=== PATIENT | male | born 1935 | race Caucasian/White ===

== ENCOUNTER 2017-02-01 13:40 | Day surgery (SDC) | payer OTHER ==
[2017-02-01 14:03] VITALS: BP 120/69; PULSE 54; RESP 20; TEMP 98.1; O2SAT 100
[2017-02-01] MEDS ORDERED: TAMS0.4C4 PO (14:08)
[2017-02-01] MEDS ORDERED: BUPIVACAINE HCL PF 0.75% 30 ML VIAL ONE (14:27)
[2017-02-01] MEDS ORDERED: TRIAMCINOLONE ACETONIDE 40 MG/ML VIAL ONE (14:27)
[2017-02-01 14:55] VITALS: BP 119/71; PULSE 46; RESP 18; TEMP 97.6; O2SAT 98
--- NOTE | 2017-02-01 14:55 | PD.RAD ---
Post Procedure Progress Note Pre Procedure Diagnosis: (1) Hip pain Post Procedure Diagnosis: (1) Hip pain Procedure Date: Feb 01, 2017 Supervising Radiologist: Esteban Barton Proceduralist/Assist: Susan Fernandez RT(R)(CV), RT Black(R)() Anesthesia: Local Plan of Activity Patient to Unit: ROPU Patient Condition: Good See PACS Report for procedural detail/treatment Esteban Barton MD Feb 01, 2017 14:55
[2017-02-01] MEDS ORDERED: IOHEXOL 300 MG/ML 50 ML BTL (for RAD DIAG) ONE (15:03)
--- NOTE | 2017-02-01 15:57 | RADRPT ---
EXAM DATE/TIME: 02/01/2017 14:51 [facility] COMPARISON: No previous studies available for comparison. INDICATIONS : Patient with left hip pain in need of steroid injection MEDICAL HISTORY : 1.Osteoarthritis 2.Left hip pain SURGICAL HISTORY : 1.Appendectomy 2.Hernia repair ENCOUNTER: Initial ACUITY: >1 year PAIN SCORE: 6/10 LOCATION: Left Hip FLUORO TIME: 0.65 IMAGE SERIES: 0 CONTRAST: 1cc Omnipaque (iohexol) 300 DEVICE: 22 gauge needle was placed into the left hip joint MEDICATIONS: 1.) 3 cc bupivicaine (Marcaine) IA 2.) 3 cc Lidocaine IA 3.) 80 mg triamcinolone (Kenalog) IA RESPONSE: Pre procedure pain level was 6/10. Post procedure pain level was 1/10. PROCEDURE : The risks, benefits and alternatives to the procedure were explained and verbal and written consent w as obtained. The site was prepped in sterile fashion. Full sterile technique was used, including ca p, mask, sterile gloves and gown and a large sterile sheet. Hand hygiene and 2% chlorhexidine and/or betadine/alcohol prep was utilized per protocol for cutaneous antisepsis. The skin and subcutaneous tissues were infiltrated with local anesthetic solution. Under sterile conditions and using aseptic technique with fluoroscopic guidance the joint was punctur ed and positive contrast was injected to confirm intra-articular position. Following this, the presc ribed mixture of Kenalog and local anesthetics was injected. The patient tolerated the procedure wel l and there were no complications. CONCLUSION: Uncomplicated therapeutic injection performed under fluoroscopic guidance. Esteban Barton MD on February 01, 2017 at 15:55 Board Certified Radiologist. This report was verified electronically.
== END 2017-02-01 15:30 | disposition home or self-care (01) ==
LOC: HROP 13:40 → HRIP 13:42 → HROP 15:30
PROVIDERS: ATTEND Physician Assistant
DX: M16.12 Unilateral primary osteoarthritis, left hip (principal)
CPT/HCPCS: 20610; J3301; Q9967; 77002

== ENCOUNTER → 2017-07-16 | Outpatient (CLI) | payer OTHER ==
[~2017-07-16] MED LIST: ASCO1CAP PO; CALCTAB19 PO; CODOIL2 PO; HYDR-3583 PO; LUTE20CA PO; MULT1TAB46 PO; SELE200T17 PO; TAMS0.4C4 PO; VITA100T65 PO; WALKER WHEELS/F1 MIS; XARE10TA PO
== END ==
LOC: CPRE 11:39
PROVIDERS: ATTEND Orthopaedic Surgery Orthopaedic Trauma
DX: Z01.810 Encounter for preprocedural cardiovascular examination (principal); Z01.811 Encounter for preprocedural respiratory examination; Z01.812 Encounter for preprocedural laboratory examination; Z01.818 Encounter for other preprocedural examination; Z96.60 Presence of unspecified orthopedic joint implant; Z79.01 Long term (current) use of anticoagulants; Z13.9 Encounter for screening, unspecified; M79.609 Pain in unspecified limb

== ENCOUNTER 2017-07-24 09:39 | Inpatient (IN) | payer OTHER ==
[~2017-07-24] VITALS: Ht 177.8 cm; Wt 83.8 kg
[2017-07-24 04:30] VITALS: BP 88/49; PULSE 56; RESP 18; TEMP 96.9; O2SAT 97
[~2017-07-24 09:39] MED LIST changes: -ASCO1CAP PO; -CALCTAB19 PO; -CODOIL2 PO; -HYDR-3583 PO; -LUTE20CA PO; -MULT1TAB46 PO; -SELE200T17 PO; -VITA100T65 PO; -WALKER WHEELS/F1 MIS; -XARE10TA PO
[2017-07-24] MEDS ORDERED: SELE200T17 PO (10:27)
[2017-07-24] MEDS ORDERED: LUTE20CA PO (10:27)
[2017-07-24] MEDS ORDERED: VITA100T65 PO (10:27)
[2017-07-24] MEDS ORDERED: MULT1TAB46 PO (10:27)
[2017-07-24] MEDS ORDERED: CODOIL2 PO (10:27)
[2017-07-24] MEDS ORDERED: ASCO1CAP PO (10:27)
[2017-07-24] MEDS ORDERED: VANCOMYCIN 1000 MG/NS 250 ML (for <70 kg) IV SCH ×2 (10:45)
[2017-07-24] MEDS ORDERED: CHLORHEXIDINE GLUCONATE 4% SOLN 120 ML BTL TOPICAL SCH (10:45)
[2017-07-24] MEDS ORDERED: ceFAZolin 2 GM PREMIX 50 ML IV SCH (10:45)
[2017-07-24] MEDS ORDERED: EXPAREL PERI-ARTICULAR INJECTION (TOTAL VOL. 60 ML) P-ARTICULR SCH ×2 (10:45)
[2017-07-24] MEDS ORDERED: INSULIN HUMAN REGULAR 1,000 UNITS/10 ML VIAL SQ PRN (11:00)
[2017-07-24] MEDS ORDERED: METOPROLOL TARTRATE 25 MG TAB PO PRN (11:00)
[2017-07-24] MEDS ORDERED: CHLORHEXIDINE GLUCONATE 2 % 1 PACK (2 CLOTHS) TOPICAL PRN (11:00)
[2017-07-24] MEDS ORDERED: LACTATED RINGER'S 1000 ML IV PRN (11:00)
[2017-07-24] MEDS ORDERED: POVIDONE IODINE 5% (ANTISEPSIS KIT) 4 APPLICATIONS EACH NARE PRN (11:00)
[2017-07-24] MEDS ORDERED: SODIUM CHLORID 0.9% 500 ML IV PRN (11:00)
[2017-07-24] MEDS ORDERED: GENTAMICIN SULFATE 80 MG/2 ML VIAL ONE (12:23)
[2017-07-24] MEDS ORDERED: EPINEPHrine HCL PF/SF (1:1000) 1 MG/ML AMP I-OCULAR ONE ×2 (12:54→12:55)
[2017-07-24] MEDS ORDERED: ACETAMINOPHEN 1000 MG/100 ML 100 ML IV ONE (12:54)
[2017-07-24] MEDS ORDERED: TETRACAINE PF 1% INJ 2 ML AMP ONE (12:57)
[2017-07-24] MEDS ORDERED: PROPOFOL 500 MG/50 ML INJ 50 ML ONE (13:07)
[2017-07-24] MEDS ORDERED: NALOXONE HCL 0.4 MG/ML AMP IV PUSH PRN (13:45)
[2017-07-24] MEDS ORDERED: MORPHINE SULFATE 4 MG/ML INJ IV PUSH PRN (13:45)
[2017-07-24] MEDS ORDERED: ONDANSETRON HCL 4 MG/2 ML VIAL IVP PRN (13:45)
[2017-07-24] MEDS ORDERED: SODIUM CHLORIDE 0.9% FLUSH 5 ML FLUSH IVF PRN (13:45)
[2017-07-24] MEDS ORDERED: Post-op Orders (for Pharmacy) MISC XX ONE (13:45)
[2017-07-24] MEDS ORDERED: TRANEXAMIC ACID IV SCH ×2 (14:00)
[2017-07-24] MEDS ORDERED: ASCORBIC ACID 1000 MG PO SCH (14:00)
[2017-07-24] MEDS ORDERED: SODIUM CHLORIDE 0.9% IV SCH ×2 (14:00)
--- NOTE | 2017-07-24 15:55 | PD.OP ---
cc: Larry Bhatt MD Operative Report Date of Surgery: Jul 24, 2017 Preoperative Diagnosis: Severe left hip osteoarthritis Postoperative Diagnosis: Procedure: Left total hip arthroplasty by anterior approach Surgeon: Larry Bhatt Scientist(s): EMELYN Méndez PA-C The surgical procedure was assisted by my physician medical research assistant. My P.A. presence was necessary throughout this case for the manipulation and positioning of the surgical extremity. My P.A. was assisting me throughout the duration of this procedure. The skill set of a physician medical research assistant was medically necessary to complete this procedure. During the surgical case the surgical technician was working at the back table and the physician medical research assistant was directly assisting me. Operation and Findings: PLAN OF ACTIVITY Weight bear as tolerated. DRAINS: 7-mm BAYLEE drain. IMPLANTS USED DePuy Corail size [12] collared stem with a size [54] [place] Gription cup, [54 /36] Altrx poly liner, and a +5 metal head. DETAILS OF PROCEDURE: This patient has a long history of hip pain. Patient was found to have severe osteoarthritis. The patient had radiographic evidence of joint space narrowing with [id number] arthritis and osteophytes around the acetabulum as well as the femoral head. There was also some cystic changes. The patient failed conservative treatment with pain medications, anti-inflammatories, physical therapy, assistive devices including a cane, as well as therapeutic injection of the hip. Patient's hip arthritis was limiting his ability to ambulate and perform activities of daily living. The patient wished to proceed with surgery and informed consent was obtained. Operative site was marked. I discussed both posterior approach and anterior approach with the patient and decision was made for anterior approach. Patient was brought to OR and placed on OR table. IV sedation and general anesthesia was administered by anesthesiologist. Patient positioned on a Krys table and was given IV antibiotics. Time-out procedure was performed. The hip and thigh were prepped with alcohol followed by Hibiclens. The thigh was draped in the usual sterile fashion. Clean Air Suite was used for this procedure. The procedure began with a 5-inch incision over the anterolateral thigh. Subcutaneous tissue was dissected with Bovie. The fascia over the tensa fasciae latae was incised. Care was taken to avoid injury to the lateral femoral cutaneous nerve. The tensor muscle was retracted laterally. Sartorius was retracted medially. Retractors were now placed. The reflected head of the rectus is now elevated. A capsulotomy was performed over the anterior head capsule. Sutures were placed to help retract the capsule. At this point the femoral head and neck were identified. With soft tissue protected, oscillating saw was used to make a cut through the femoral neck, the femoral head was now removed. At this point attention was turned to preparation of the acetabulum. The labrum was excised. The acetabulum was sequentially reamed up to size [54]. A [place] cup was now placed. Fluoroscopy was used to aid in identification of appropriate version. Cup was fully impacted and found to have excellent fit. Hole eliminator was now placed. The liner was now impacted into the cup. At this point the hip was externally rotated. A hook was placed around the proximal femur. The capsule was released off the lateral and medial femur. The hip was now extended and adducted. Retractors were placed around the proximal femur to allow for exposure. A box osteotome was used to remove the lateral cortex of the femoral neck. A broach was used to help lateralize the prosthesis. Canal finder was used to create a path down the canal. Next, the canal was sequentially broached up to size [12]. This was found to be an excellent fit. Calcar planer was placed. A standard head was placed, and the hip was reduced. The hip was found to have excellent stability with good range of motion. The leg lengths were measured under fluoroscopy and found to be equal compared to preoperatively. Trial broach was removed. The Corail stem was opened. Stem was fully impacted into the proximal femur in appropriate version. The femoral head was placed. The hip was again reduced. Fluoroscopy confirmed excellent alignment of prosthesis. The wound was thoroughly irrigated and capsule was closed with #1 Vicryl. The fascia over the tensor fasciae muscle was closed with #1 Vicryl, subcutaneous tissue was closed with 3-0 Vicryl and the skin was closed with annie and Dermabond skin closure. The capsule layers, muscle, and subcutaneous tissue were injected with a mixture of saline and bupivicaine. Dressings were applied. The patient was transferred to Recovery Room in stable condition. Larry Bhatt MD Jul 24, 2017 15:55
[2017-07-24] MEDS ORDERED: DO NOT ADM ANY ANTICOAGULANT DRUGS PRN (16:27)
[2017-07-24] MEDS ORDERED: WALKER WHEELS/F1 MIS (16:29)
[2017-07-24] MEDS ORDERED: XARE10TA PO (16:29)
[2017-07-24] MEDS ORDERED: HYDR-3583 PO (16:29)
[2017-07-24] MEDS ORDERED: CALCTAB19 PO (16:29)
--- NOTE | 2017-07-24 16:32 | HHI.FF ---
Face to Face Verification Diagnosis: (1) Status post left hip replacement Physical Therapy Gait training, Safety evaluation Hip: Total hip, Protocol: Left, Posterior hip precautions Left LE Weight Bearing: WB as tolerated Nursing Dressing Changes: Do not change dressing Additional Instructions dry dressings unless dirty, then replace. xeroform over drain site only I have seen patient Chandler Mercedes on 07/24/17. My clinical findings support the need for the requested home health care services because: Limited ability to care for self I certify that my clinical findings support that this patient is homebound because: Post-op weakness Brijesh Messer Jr. Jul 24, 2017 16:32
[2017-07-24] MEDS: LACTATED RINGER'S 1000 ML INJ 1,000 ML IV SCH (16:33)
--- NOTE | 2017-07-24 16:38 | RADRPT ---
EXAM DATE/TIME: 07/24/2017 15:25 [facility] COMPARISON: FLUOROSCOPY PORTABLE UP TO 1HR, July 24, 2017, 0:00. INDICATIONS : Left anterior hip replacement. MEDICAL HISTORY : None. SURGICAL HISTORY : None. ENCOUNTER: Initial ACUITY: 1 day PAIN SCORE: 0/10 LOCATION: Left hip FINDINGS: The patient is post left hip arthroplasty. Orthopedic hardware is in excellent position. The alignmen t is good. CONCLUSION: 1. Uncomplicated left hip arthroplasty. Livan Carter MD on July 24, 2017 at 16:35 Board Certified Radiologist. This report was verified electronically.
--- NOTE | 2017-07-24 17:15 | RADRPT ---
EXAM DATE/TIME: 07/24/2017 16:29 [facility] COMPARISON: No previous studies available for comparison. INDICATIONS : Post op left anterior hip. MEDICAL HISTORY : None. SURGICAL HISTORY : None. ENCOUNTER: Subsequent ACUITY: 1 day PAIN SCORE: 6/10 LOCATION: Left pelvis FINDINGS: Left total hip arthroplasty is present. The hardware appears intact. Alignment is anatomic. The adjac ent pelvis is unremarkable. A surgical drain is present. There is severe degenerative arthritic hale e of the contralateral right hip. CONCLUSION: Satisfactory appearance post left ANNIE Desean Leyva MD on July 24, 2017 at 17:13 Board Certified Radiologist. This report was verified electronically.
[2017-07-24 18:00] VITALS: BP 102/59; PULSE 49; RESP 18; TEMP 96.3; O2SAT 100
[2017-07-24] MEDS ORDERED: TRANEXAMIC ACID INJ 1,000 MG in SODIUM CHLORIDE 0.9% INJ 100 ML IV ONE (18:00)
[2017-07-24 19:52] VITALS: BP 113/68; PULSE 84; RESP 18; TEMP 96.8; O2SAT 97
[2017-07-24] MEDS: SODIUM CHLORIDE 0.9% FLUSH 5 ML FLUSH IVF SCH (21:00)
[2017-07-24] MEDS: ceFAZolin 2 GM PREMIX 50 ML IV SCH (21:35)
[2017-07-24] MEDS: KETOROLAC TROMETHAMINE 30 MG/ML (IVP) VIAL IV PUSH SCH (21:35)
[2017-07-24] MEDS: TAMSULOSIN HCL 0.4 MG CAP PO SCH (21:36)
[2017-07-24] MEDS: ACETAMINOPHEN/HYDROcodone 325 MG/7.5 MG TAB PO PRN (21:45)
[2017-07-24 23:52] VITALS: BP 93/50; PULSE 69; RESP 18; TEMP 97.5; O2SAT 96
[2017-07-25] MEDS: LACTATED RINGER'S 1000 ML INJ 1,000 ML IV SCH ×2 (02:34→15:00)
[2017-07-25] MEDS: VANCOMYCIN INJ 1,000 MG in SODIUM CHLOR 0.9% 250 ML INJ 250 ML IV SCH ×2 (02:34→14:22)
[2017-07-25] MEDS: ceFAZolin 2 GM PREMIX 50 ML IV SCH ×2 (03:40→08:50)
[2017-07-25 05:28] VITALS: BP 102/57; PULSE 56
[2017-07-25] MEDS: KETOROLAC TROMETHAMINE 30 MG/ML (IVP) VIAL IV PUSH SCH ×2 (06:05→18:30)
--- NOTE | 2017-07-25 06:23 | PD.ORT.PN ---
Subjective Subjective Remarks POD 1 s/p left anterior ANNIE doing well. pain controlled. has not been out of bed yet. states has had urinary retention for which was straight cath'd last night. nurse reports she drained 1300cc Objective Vitals Vital Signs Date Time Temp Pulse Resp B/P (MAP) Pulse Ox O2 Delivery O2 Flow Rate FiO2 07/25/17 05:28 56 102/57 (72) 07/24/17 23:52 97.5 69 18 93/50 (64) 96 07/24/17 23:50 Room Air 07/24/17 21:20 Nasal Cannula 2.00 07/24/17 19:52 96.8 84 18 113/68 (83) 97 07/24/17 18:00 96.3 49 18 102/59 (73) 100 07/24/17 17:30 96.1 51 16 106/57 (73) 100 Room Air 07/24/17 17:15 52 19 112/57 (75) 100 Room Air 07/24/17 17:00 54 22 91/56 (68) 100 Nasal Cannula 2 07/24/17 16:45 58 14 101/61 (74) 100 Nasal Cannula 2 07/24/17 16:30 59 20 102/64 (77) 99 Nasal Cannula 2 07/24/17 16:26 46 15 88/50 (63) 99 07/24/17 16:24 97.4 47 20 83/47 (59) 98 Nasal Cannula 2 07/24/17 10:29 98.0 50 18 112/69 (83) 98 I/O 07/24/17 07/24/17 07/24/17 07/25/17 07/25/17 07/25/17 07:00 15:00 23:00 07:00 15:00 23:00 Intake Total 2378 ml 758 ml Output Total 1760 ml 110 ml Balance 618 ml 648 ml Intake Oral 490 ml 360 ml IV Total 188 ml 398 ml Other 1700 ml Output Urine Total 1300 ml Drainage Total 260 ml 110 ml Estimated Blood Loss 200 ml # Voids 0 0 # Bowel Movements 0 0 Imaging Last 24 hours Impressions Hip and Pelvis X-Ray 07/24/17 1345 Signed Impressions: Service Date/Time: Monday, July 24, 2017 16:29 - CONCLUSION: Satisfactory appearance post left ANNIE Desean C. Tonkin, MD Objective Remarks LLE: dressings clean and dry. intact. NVI. +drain. Assessment & Plan Assessment and Plan 1) Left Anterior ANNIE - POD 1 -WBAT -maintain dressings -DC drain today -plan for home with [facility] tomorrow if doing well with therapy and urinary retention problem solved -Lovenox and DC with Xarelto -F/u with Martina or PA in 2 weeks Amilcar Cummins/Validation Software Facilitator PAULO Jul 25, 2017 06:23
[2017-07-25 06:39] LABS: HEMATOCRIT 33.2 % (39.0-51.0); REVIEW FLAG FINAL
[2017-07-25 08:00] VITALS: BP 93/53; PULSE 56; RESP 18; TEMP 97.8; O2SAT 95
[2017-07-25] MEDS: MULTIVITAMIN TAB PO SCH (08:51)
[2017-07-25] MEDS: ACETAMINOPHEN/HYDROcodone 325 MG/7.5 MG TAB PO PRN (08:51)
[2017-07-25] MEDS: SODIUM CHLORIDE 0.9% FLUSH 5 ML FLUSH IVF SCH ×2 (08:52→21:32)
[2017-07-25 12:00] VITALS: BP 106/66; PULSE 54; RESP 18; TEMP 97.2; O2SAT 96
[2017-07-25] MEDS: ACETAMINOPHEN/HYDROcodone 325 MG/10 MG TAB PO PRN (14:23)
[2017-07-25] MEDS: ENOXAPARIN SODIUM 40 MG/0.4 ML SYRINGE SQ SCH (15:27)
[2017-07-25 15:35] VITALS: BP 100/52; PULSE 53; RESP 16; TEMP 97.5; O2SAT 99
[2017-07-25 20:00] VITALS: BP 109/55; PULSE 55; RESP 16; TEMP 99.1; O2SAT 95
[2017-07-25] MEDS: DOCUSATE SODIUM 100 MG CAP PO SCH (21:32)
[2017-07-25] MEDS: TAMSULOSIN HCL 0.4 MG CAP PO SCH (21:32)
[2017-07-26] VITALS: BP 129/58; PULSE 57; RESP 18; TEMP 98.6; O2SAT 95
[2017-07-26] MEDS: ACETAMINOPHEN/HYDROcodone 325 MG/7.5 MG TAB PO PRN (04:03)
[2017-07-26] MEDS: LACTATED RINGER'S 1000 ML INJ 1,000 ML IV SCH ×2 (04:03→15:45)
[2017-07-26] MEDS: KETOROLAC TROMETHAMINE 30 MG/ML (IVP) VIAL IV PUSH SCH (06:08)
--- NOTE | 2017-07-26 06:59 | PD.ORT.PN ---
Subjective Subjective Remarks Resting comfortably no new complaints Objective Vitals Vital Signs Date Time Temp Pulse Resp B/P (MAP) Pulse Ox O2 Delivery O2 Flow Rate FiO2 07/26/17 00:00 98.6 57 18 129/58 (81) 95 07/25/17 21:35 Room Air 07/25/17 20:00 99.1 55 16 109/55 (73) 95 07/25/17 15:35 97.5 53 16 100/52 (68) 99 07/25/17 12:00 97.2 54 18 106/66 (79) 96 07/25/17 08:00 97.8 56 18 93/53 (66) 95 I/O 07/25/17 07/25/17 07/25/17 07/26/17 07/26/17 07/26/17 07:00 15:00 23:00 07:00 15:00 23:00 Intake Total 758 ml 480 ml 480 ml 0 ml Output Total 110 ml 1405 ml 950 ml 1500 ml Balance 648 ml -925 ml -470 ml -1500 ml Intake Oral 360 ml 480 ml 480 ml 0 ml IV Total 398 ml Output Urine Total 1325 ml 950 ml 1500 ml Drainage Total 110 ml 80 ml # Voids 0 # Bowel Movements 0 0 0 0 Result Diagram: 07/25/17 0604 Imaging Last 24 hours Impressions Hip and Pelvis X-Ray 07/24/17 1345 Signed Impressions: Service Date/Time: Monday, July 24, 2017 16:29 - CONCLUSION: Satisfactory appearance post left ANNIE Desean Leyva MD Objective Remarks LLE: dressings clean and dry. intact. NVI. Assessment & Plan Assessment and Plan 1) Left Anterior ANNIE - POD 1 -WBAT PT twice a day -maintain dressings -plan for home with [facility] tomorrow if cleared by urology -Lovenox and DC with Xarelto incentive spirometry -F/u with Martina or PA in 2 weeks Brijesh Messer Jr. Jul 26, 2017 06:59
[2017-07-26 08:00] VITALS: BP 110/60; PULSE 54; RESP 18; TEMP 97.9; O2SAT 94
[2017-07-26] MEDS: DOCUSATE SODIUM 100 MG CAP PO SCH ×2 (08:05→21:25)
[2017-07-26] MEDS: MULTIVITAMIN TAB PO SCH (08:05)
[2017-07-26] MEDS: ACETAMINOPHEN/HYDROcodone 325 MG/10 MG TAB PO PRN (08:06)
[2017-07-26] MEDS: SODIUM CHLORIDE 0.9% FLUSH 5 ML FLUSH IVF SCH ×2 (08:07→21:00)
[2017-07-26 12:00] VITALS: BP 101/48; PULSE 54; RESP 18; TEMP 97.5; O2SAT 97
--- NOTE | 2017-07-26 12:20 | PD.CONS ---
[facility] Service Urology Consult Requested By Dr. Larry Forde Reason for Consult Urinary retention [facility] Diagnosis: History of Present Illness 81-year-old gentleman with history obstructing BPH who is postop day #2 from undergoing a left hip arthroplasty procedure. Postoperatively the patient has had problems voiding and required intermittent catheterization several times. At time of consultation the patient had an indwelling Davis catheter draining clear yellow urine. Upon further questioning the patient reports that he has been taking Flomax 0.8 mg daily as prescribed by his established urologist Dr Long and had been doing well on this regimen prior to his recent surgery. He denies any complaints during the consult and was anxious to go home. Review of Systems Constitutional: DENIES: Fever Gastrointestinal: DENIES: Abdominal pain Musculoskeletal: DENIES: Back pain Except as stated in HPI: all other systems reviewed are Neg Past Family Social History Past Medical History Refer to EMR Past Surgical History Refer to EMR Reported Medications Refer to EMR Allergies: Coded Allergies: No Known Allergies (Unverified Allergy, Unknown, 07/24/17) Active Ordered Medications Refer to EMR Family History Refer to EMR Social History Refer to EMR Physical Exam Vital Signs Date Time Temp Pulse Resp B/P (MAP) Pulse Ox O2 Delivery O2 Flow Rate FiO2 07/26/17 08:00 97.9 54 18 110/60 (77) 94 07/26/17 00:00 98.6 57 18 129/58 (81) 95 07/25/17 21:35 Room Air 07/25/17 20:00 99.1 55 16 109/55 (73) 95 07/25/17 15:35 97.5 53 16 100/52 (68) 99 Physical Exam GENERAL: This is a well-nourished, well-developed patient, in no apparent distress. SKIN: No rashes, ecchymoses or lesions. Cool and dry. HEAD: Atraumatic. Normocephalic. No temporal or scalp tenderness. EYES: Pupils equal round and reactive. Extraocular motions intact. No scleral icterus. No injection or drainage. ENT: Nose without bleeding, purulent drainage or septal hematoma. Throat without erythema, tonsillar hypertrophy or exudate. Uvula midline. Airway patent. NECK: Trachea midline. No JVD or lymphadenopathy. Supple, nontender, no meningeal signs. GASTROINTESTINAL: Abdomen soft, non-tender, nondistended. No hepato-splenomegaly , or palpable masses. No guarding. GENITOURINARY: Bladder not distended, Davis catheter in place draining clear yellow urine. MUSCULOSKELETAL: Changes consistent with recent left hip surgery NEUROLOGICAL: Awake and alert. Cranial nerves II through XII intact. Motor and sensory grossly within normal limits. Five out of 5 muscle strength in all muscle groups. Normal speech. Lab results reviewed: Yes Result Diagram: 07/25/17 0604 Imaging Last Impressions Hip and Pelvis X-Ray 07/24/17 1345 Signed Impressions: Service Date/Time: Monday, July 24, 2017 16:29 - CONCLUSION: Satisfactory appearance post left ANNIE Desean Leyva MD Hip X-Ray 07/24/17 0000 Signed Impressions: Service Date/Time: Monday, July 24, 2017 15:25 - CONCLUSION: 1. Uncomplicated left hip arthroplasty. Livan Carter MD Assessment and Plan Assessment and Plan Urologic impression: #1 history BPH #2 urinary retention of likely transient nature Recommendations: #1 continue Davis catheter to gravity drainage #2 Davis to be removed Sunday either at my office with patient's established urologist Dr. Long #3 patient to continue with tamsulosin 0.8 mg by mouth daily Don Marley MD Jul 26, 2017 12:20
[2017-07-26 13:45] VITALS: BP 118/70
[2017-07-26 16:00] VITALS: BP 130/80; PULSE 51; RESP 18; TEMP 97.2; O2SAT 99
[2017-07-26] MEDS: ENOXAPARIN SODIUM 40 MG/0.4 ML SYRINGE SQ SCH (16:21)
[2017-07-26 20:00] VITALS: BP 130/65; PULSE 58; RESP 18; TEMP 98.1; O2SAT 96
[2017-07-26] MEDS: TAMSULOSIN HCL 0.4 MG CAP PO SCH (21:25)
[2017-07-27] VITALS: BP 115/56; PULSE 56; RESP 16; TEMP 98.8; O2SAT 95
[2017-07-27] MEDS: LACTATED RINGER'S 1000 ML INJ 1,000 ML IV SCH (04:07)
[2017-07-27] MEDS ORDERED: MAGNESIUM HYDROXIDE SUSP 30 ML CUP PO PRN (07:15)
--- NOTE | 2017-07-27 07:45 | PD.ORT.PN ---
Subjective Subjective Remarks POD 3 s/p left anterior ANNIE doing well. pain controlled. ambulating with therapy. was seen by urology who has placed a nieto catheter Objective Vitals Vital Signs Date Time Temp Pulse Resp B/P (MAP) Pulse Ox O2 Delivery O2 Flow Rate FiO2 07/27/17 00:00 98.8 56 16 115/56 (75) 95 07/26/17 20:00 98.1 58 18 130/65 (86) 96 Manual Cuff/Palpation 07/26/17 20:00 96 Room Air 07/26/17 16:00 97.2 51 18 130/80 (97) 99 07/26/17 13:45 118/70 (86) 07/26/17 12:00 97.5 54 18 101/48 (65) 97 07/26/17 08:00 97.9 54 18 110/60 (77) 94 I/O 07/26/17 07/26/17 07/26/17 07/27/17 07/27/17 07/27/17 07:00 15:00 23:00 07:00 15:00 23:00 Intake Total 0 ml 480 ml 480 ml 240 ml Output Total 1500 ml 900 ml 550 ml 400 ml Balance -1500 ml -420 ml -70 ml -160 ml Intake Oral 0 ml 480 ml 480 ml 240 ml Output Urine Total 1500 ml 900 ml 550 ml 400 ml # Bowel Movements 0 0 0 0 Result Diagram: 07/25/17 0604 Imaging Last 24 hours Impressions Hip and Pelvis X-Ray 07/24/17 1345 Signed Impressions: Service Date/Time: Monday, July 24, 2017 16:29 - CONCLUSION: Satisfactory appearance post left ANNIE Desean Leyva MD Objective Remarks LLE: dressings clean and dry. intact. NVI. Assessment & Plan Assessment and Plan 1) Left Anterior ANNIE - POD 3 -WBAT PT twice a day -maintain dressings -plan for home with [facility] today -Lovenox and DC with Xarelto -incentive spirometry -F/u with Martina or PAULO in 2 weeks -will be DCd with nieto catheter per urology and will follow up with urology on Sunday for catheter removal Amilcar Cummins/Machine Captain PA Jul 27, 2017 07:45
--- NOTE | 2017-07-27 07:48 | HHI.DS ---
Discharge Summary Admission Date Jul 24, 2017 at 09:39 Discharge Date: Jul 27, 2017 Admitting Diagnosis Left hip osteoarthritis Diagnosis: (1) Status post left hip replacement Diagnosis: Principal ICD Codes: Z96.642 - Presence of left artificial hip joint Procedures Left anterior total hip replacement CBC/BMP: 07/25/17 0604 Significant Findings Laboratory Tests Test 07/25/17 06:04 Hemoglobin 11.2 GM/DL (13.0-17.0) Hematocrit 33.2 % (39.0-51.0) PE at Discharge LLE: dressings clean and dry. intact. NVI. Hospital Course Patient was admitted from outpatient basis for elective left total hip arthroplasty. He tolerated procedure well. He was admitted 6 north. He was out of bed on postop day 1 with therapy. His pain was well-controlled. Possibly one he reported significant urinary retention for which he has a history of. He had to be straight catheterized multiple times. Urology was consulted and they recommended the placement of a Davis catheter. By postoperative day 3 he was out of bed with therapy, ambulating with minimal discomfort, the drain had been discontinued, he is hemodynamically stable and fit for discharge home with home health care. He'll also be discharged with his Davis catheter. He is to follow up with urology on Sunday for removal of his catheter. He'll follow up with Dr. Forde or his PA in 2 weeks. He will remain full weightbearing and will work on his gait training. Pt Condition on Discharge: Fair Discharge Disposition: Disch w/ Home Health Serv Discharge Instructions Diet Instructions: As Tolerated, No Restrictions Activities You Can Perform: Weight Bearing as [place] Follow up Referrals: Orthopedics - 2 Weeks @ [facility] with Larry Forde MD New Medications: Calcium Carbonate-Vitamin D (Calcium 600+D 200) 600-200 Mg-Unit Tab 1 TAB PO BID for Nutritional Supplement, #90 TAB 0 Refills Hydrocodone-Acetaminophen (Hydrocodone-Acetaminophen) 10-325 mg Tab 1 TAB PO Q4H PRN for PAIN, #60 TAB 0 Refills Rivaroxaban (Xarelto) 10 Mg Tab 10 MG PO DAILY for Blood Clot Prevention, #14 TAB 0 Refills Walker with Front Wheels (Walker with Front Wheels) 1 Mis Mis EA .ROUTE DIRECTED, #1 0 Refills Continued Medications: Ascorbic Acid ER (Vitamin C Tr) 500 Mg Caper 1000 MG PO 5 TIMES A DAY for Nutritional Supplement, #30 CAP 0 Refills Cod Liver Oil (Cod Liver Oil) 5,000-500 Unit/5Ml Oil 15 ML PO DAILY Lutein (Lutein) 20 Mg Cap 20 MG PO DAILY for Nutritional Supplement, CAP 0 Refills Multiple Vitamin (Multi Vitamin Daily) 1 Tab Tab 1 TAB PO DAILY Selenium (Selenium) 200 Mcg Tab 200 MG PO DAILY for Nutritional Supplement, TAB 0 Refills Tamsulosin (Tamsulosin) 0.4 Mg Cap 0.8 MG PO HS for Manage Prostate Problems, #60 CAP 0 Refills Vitamin E (Vitamin E) 100 Unit Tab 100 UNITS PO DAILY for Nutritional Supplement, TAB 0 Refills Amilcar Cummins/First Nataliya BATES Jul 27, 2017 07:48
[2017-07-27 08:00] VITALS: BP 127/64; PULSE 55; RESP 18; TEMP 98; O2SAT 95
[2017-07-27] MEDS: SODIUM CHLORIDE 0.9% FLUSH 5 ML FLUSH IVF SCH (09:00)
[2017-07-27] MEDS: DOCUSATE SODIUM 100 MG CAP PO SCH (09:50)
[2017-07-27] MEDS: MULTIVITAMIN TAB PO SCH (09:50)
[2017-07-27] MEDS: ACETAMINOPHEN/HYDROcodone 325 MG/7.5 MG TAB PO PRN (09:51)
== END 2017-07-27 13:11 | disposition home or self-care (01) | DRG 470 ==
LOC: HSDI 09:39 → N06B 17:52
PROVIDERS: ADMIT Orthopaedic Surgery Orthopaedic Trauma; ATTEND Orthopaedic Surgery Orthopaedic Trauma
PROC: 0SRB02A Replacement of Left Hip Joint with Metal on Polyethylene Synthetic Substitute, Uncemented, Open Approach (ICD-10-PCS; principal; 2017-07-24 13:59)
DX: M16.12 Unilateral primary osteoarthritis, left hip (principal); N40.1 Benign prostatic hyperplasia with lower urinary tract symptoms; R33.8 Other retention of urine
CPT/HCPCS: 73501; 73502; 76000; 85014; 85018; 86850; 86900; 86901; C1776; C9290; J0131; J0171; J0690; J1580; J1650; J1885; J3370; J7050; J7120